=== PATIENT | male | born 1960 | race Caucasian/White ===

== ENCOUNTER 2018-05-08 08:19 | Day surgery (SDC) | payer BC ==
[~2018-05-08 08:19] MED LIST: Dexamethasone 4 MG/ML 5 ML MDV ONE; HYDROmorphone 0.5 MG/0.5 ML Syringe ONE; Ketorolac 30 MG/ML SDV ONE; Lactated Ringers 1,000 ML IV SCH; Lactated Ringers 1,000 ML ONE; Lidocaine 1% PF 2 ML SDV ONE; Lidocaine 1%/Sod Bicarbonate in NS 8.4% 1 ML Syringe IDERM PRN; Midazolam 1 MG/ML 2 ML SDV ONE; Ondansetron 4 MG/2 ML SDV ONE; Propofol 200 MG/20 ML SDV ONE; Sodium Chloride 0.9% 10 ML Syringe FLUSH PRN; ceFAZolin 1 GM Vial ONE; fentaNYL 250 MCG/5 ML SDV ONE
--- NOTE | 2018-05-08 08:27 | PCM.PREANE ---
Preanesthetic Assessment - Anesthesia/Transfusion/Family Hx Anesthesia History: Prior Anesthesia Without Reaction Family History of Anesthesia Reaction: No Transfusion History: No Prior Transfusion(s) Intubation History: Unknown - Review of Systems General: No Symptoms Pulmonary: No Symptoms (ETOH: rarely) Cardiovascular: No Symptoms Gastrointestinal: No Symptoms (GERD with raw vegetables.) Neurological: No Symptoms, Gait Disturbance (prior injury.) Other: Reports: None - Physical Assessment NPO Status Date: 05/07/18 NPO Status Time: 18:00 Pulse: 78 O2 Sat by Pulse Oximetry: 95 Respiratory Rate: 16 Blood Pressure: 152/94 Temperature: 36.9 C Height: 1.88 m Weight: 143 kg ASA Class: 2 Mental Status: Alert & Oriented x3 Airway Class: Mallampati = 2 Dentition: Reports: Normal Dentition, Caries Thyro-Mental Finger Breadths: 3 Mouth Opening Finger Breadths: 3 ROM/Head Extension: Full Lungs: Clear to Auscultation, Normal Respiratory Effort Cardiovascular: Regular Rate, Regular Rhythm, No Murmurs - Imaging/EKG Impressions: EKG: SR rate=75, borderline left axis deviation, abnormal R wave progression - Allergies Allergies/Adverse Reactions: Allergies Allergy/AdvReac Type Severity Reaction Status Date / Time Penicillins Allergy Rash Verified 05/07/18 13:26 - Anesthesia Plan Pre-Op Medication Ordered: None - Acknowledgements Anesthesia Type Planned: General Anesthesia Pt an Appropriate Candidate for the Planned Anesthesia: Yes Alternatives and Risks of Anesthesia Discussed w Pt/Guardian: Yes Pt/Guardian Understands and Agrees with Anesthesia Plan: Yes PreAnesthesia Questionnaire Cardiovascular History: Reports: None Respiratory History: Reports: None Gastrointestinal History: Reports: Other (See Below) Other Gastrointestinal History: left inguinal hernia Genitourinary History: Reports: None CELL SUPPORT OPERATOR History: Reports: None Musculoskeletal History: Reports: None Neurological History: Reports: None Psychiatric History: Reports: None Endocrine/Metabolic History: Reports: None Hematologic History: Reports: None Immunologic History: Reports: None Oncologic (Cancer) History: Reports: None Dermatologic History: Reports: None - Past Surgical History HEENT Surgical History: Reports: Tonsillectomy Cardiovascular Surgical History: Reports: None Respiratory Surgical History: Reports: None Female Surgical History: Reports: None Male Surgical History: Reports: None Endocrine Surgical History: Reports: None Neurological Surgical History: Reports: None Musculoskeletal Surgical History: Reports: Other (See Below) Other Musculoskeletal Surgeries/Procedures:: left knee surgery with hardware, right ankle surgery with hardware Oncologic Surgical History: Reports: None Dermatological Surgical History: Reports: None - SUBSTANCE USE Smoking Status *Q: Never Smoker Recreational Drug Use History: No - HOME MEDS Home Medications: Home Meds Multivitamin [Daily Multiple Vitamin] 1 tab PO DAILY 05/07/18 [History] Naproxen Sodium [Aleve] 220 mg PO BID 05/07/18 [History] - CURRENT (IN HOUSE) MEDS Current Meds: Current Medications Lactated Ringer's (Ringers, Lactated) 1,000 mls @ 125 mls/hr IV ASDIRECTED AISHWARYA Lidocaine/Sodium Bicarbonate (Buffered Lidocaine 1% In Ns 8.4%) 0.25 ml IDERM ONETIME PRN PRN Reason: Prior to IV Start Sodium Chloride (Saline Flush) 10 ml FLUSH ASDIRECTED PRN PRN Reason: Keep Vein Open Discontinued Medications Cefazolin Sodium (Ancef) Confirm Administered Dose 2 gm .ROUTE .STK-MED ONE Stop: 05/08/18 08:05 Dexamethasone (Dexamethasone) Confirm Administered Dose 20 mg .ROUTE .STK-MED ONE Stop: 05/08/18 08:05 Fentanyl (Sublimaze) Confirm Administered Dose 250 mcg .ROUTE .STK-MED ONE Stop: 05/08/18 08:06 Hydromorphone HCl (Dilaudid) Confirm Administered Dose 0.5 mg .ROUTE .STK-MED ONE Stop: 05/08/18 08:05 Lactated Ringer's (Ringers, Lactated) Confirm Administered Dose 1,000 mls @ as directed .ROUTE .STK-MED ONE Stop: 05/08/18 08:05 Ketorolac Tromethamine (Toradol) Confirm Administered Dose 30 mg .ROUTE .STK- MED ONE Stop: 05/08/18 08:05 Lidocaine HCl (Xylocaine-Mpf 1%) Confirm Administered Dose 6 ml .ROUTE .STK-MED ONE Stop: 05/08/18 08:05 Midazolam HCl (Versed 1 Mg/Ml) Confirm Administered Dose 2 mg .ROUTE .STK-MED ONE Stop: 05/08/18 08:06 Ondansetron HCl (Zofran) Confirm Administered Dose 4 mg .ROUTE .STK-MED ONE Stop: 05/08/18 08:05 Propofol (Diprivan 20 Ml) Confirm Administered Dose 200 mg .ROUTE .[facility] ONE Stop: 05/08/18 08:05
[2018-05-08] MEDS ORDERED: ceFAZolin 1 GM Vial ONE (09:27)
[2018-05-08] MEDS ORDERED: HYDROmorphone 0.5 MG/0.5 ML Syringe ONE (09:55)
[2018-05-08] MEDS: Lidocaine 1% with EPINEPHrine 1:100,000 20 ML MDV ONE ×2 (10:03→10:40)
[2018-05-08] MEDS ORDERED: ePHEDrine/Normal Saline 25 MG/5 ML Syringe ONE (10:07)
[2018-05-08] MEDS ORDERED: fentaNYL 100 MCG/2 ML SDV IVPUSH PRN (11:18)
--- NOTE | 2018-05-08 11:21 | PCM.POSTAN ---
POST ANESTHESIA ASSESSMENT - MENTAL STATUS Mental Status: Somnolent - VITAL SIGNS Pulse Rate: 93 SaO2: 91 Resp Rate: 10 Blood Pressure: 145/86 Temperature: 36.4 C - RESPIRATORY Respiratory Status: Respiratory Rate WNL, Airway Patent, O2 Saturation Stable, Supplemental Oxygen - CARDIOVASCULAR CV Status: Pulse Rate WNL, Blood Pressure Stable - GASTROINTESTINAL GI Status: No Symptoms - PAIN Pain Score: 0 - POST OP HYDRATION Hydration Status: Adequate & Stable - OBSERVATIONS Free Text/Narrative:: no anesthesia complications noted
--- NOTE | 2018-05-08 13:41 | OR ---
DATE OF OPERATION: 05/08/2018 SURGEON: Diogenes Omalley MD PREOPERATIVE DIAGNOSIS: Large left inguinal hernia. POSTOPERATIVE DIAGNOSIS: Large left inguinal hernia. OPERATION PERFORMED: Open repair of left inguinal hernia with mesh. ANESTHESIA: General. ESTIMATED BLOOD LOSS: 20 mL. SPECIMEN: None. OPERATIVE FINDINGS: Large indirect inguinal hernia. INDICATION FOR PROCEDURE: This 57-year-old male has a palpable symptomatic left inguinal hernia. He had one on the right side fixed several years ago with mesh. He now presents for this one on the left side to be fixed. DESCRIPTION OF PROCEDURE: After adequate preparation, an incision was made over the left groin and carried down through the external abdominal oblique. This was then dissected free from the subcutaneous tissue. The external oblique was opened down to the deep inguinal ring, and the spermatic cord and hernia sac were elevated out of the inguinal canal. The hernia showed to be an indirect hernia. It did have some intraabdominal contents, but mostly contained preperitoneal fat and cord lipoma. This was then dissected free from the cord structures and reduced back into the abdomen through the deep inguinal ring. A precut size mesh was placed over the inguinal floor and sewn in place using 0 Prolene suture. This seemed to adequately block the entire inguinal canal and was fixated to the inguinal ligament and the conjoint tendon. Sutures were placed around the tail of the suture to encompass the cord structures. The external oblique was closed with interrupted 0 Vicryl sutures and 0 Vicryl was used for the subcutaneous layer and Monocryl for the skin. MMODAL /[id number]
--- NOTE | 2018-05-09 07:37 | PCM48HPAN ---
Post Anesthesia Note - EVALUATION WITHIN 48HRS OF ANESTHETIC Vital Signs in Normal Range: Yes Patient Participated in Evaluation: Yes Respiratory Function Stable: Yes Airway Patent: Yes Cardiovascular Function Stable: Yes Hydration Status Stable: Yes Pain Control Satisfactory: Yes Nausea and Vomiting Control Satisfactory: Yes Mental Status Recovered: Yes Pulse Rate: 93 Resp Rate: 16 Temperature: 36.4 C Blood Pressure: 145/86 - COMMENTS/OBSERVATIONS Free Text/Narrative:: no anesthesia complications noted
== END 2018-05-08 14:46 | disposition home or self-care (01) ==
LOC: JD.SDS 08:19
PROVIDERS: ATTEND Surgery
DX: K40.90 Unilateral inguinal hernia, without obstruction or gangrene, not specified as recurrent (principal); D17.6 Benign lipomatous neoplasm of spermatic cord; Z68.41 Body mass index [BMI] 40.0-44.9, adult; Z79.899 Other long term (current) drug therapy; Z88.0 Allergy status to penicillin
CPT/HCPCS: 49505; 93005; J0690; J1100; J1170; J1885; J2001; J2250; J2405; J2704; J3010; J7050; J7120; C1781